=== PATIENT | female | born 2000 | race African-American/Black ===

== ENCOUNTER 2022-04-29 21:14 | Emergency (ER) | payer OTHER ==
[~2022-04-29] VITALS: Ht 162.6 cm; Wt 56.8 kg
[2022-04-29 23:30] VITALS: BP 119/66
== END 2022-04-29 23:55 | disposition home or self-care (01) ==
LOC: EMS 21:18
DX: S93.401A Sprain of unspecified ligament of right ankle, initial encounter (principal); G43.909 Migraine, unspecified, not intractable, without status migrainosus; X58.XXXA Exposure to other specified factors, initial encounter; Y93.01 Activity, walking, marching and hiking; Y92.89 Other specified places as the place of occurrence of the external cause; Y99.8 Other external cause status
CPT/HCPCS: 99283

== ENCOUNTER 2024-05-13 09:00 | Emergency (ER) | payer OTHER ==
[~2024-05-13] VITALS: Ht 162.6 cm; Wt 59.1 kg
[2024-05-13 09:03] VITALS: BP 122/63; PULSE 85; RESP 18; TEMP 98.4
[2024-05-13] MEDS: ACETAMINOPHEN 325 MG TABLET PO ONE (09:48)
[2024-05-13] MEDS ORDERED: ACET-2247 PO (10:04)
== END 2024-05-13 10:28 | disposition home or self-care (01) ==
LOC: EMS 09:07
DX: S60.221A Contusion of right hand, initial encounter (principal); W23.1XXA Caught, crushed, jammed, or pinched between stationary objects, initial encounter; Y93.89 Activity, other specified; Y92.89 Other specified places as the place of occurrence of the external cause; Y99.8 Other external cause status
CPT/HCPCS: 99283

== ENCOUNTER 2024-05-19 11:10 | Emergency (ER) | payer OTHER ==
[~2024-05-19] VITALS: Ht 162.6 cm; Wt 56.8 kg
[~2024-05-19 11:10] MED LIST: ACET-2247 PO
[2024-05-19 11:18] VITALS: TEMP 98.5
[2024-05-19] MEDS ORDERED: IBUP-1492 PO (13:48)
[2024-05-19 14:15] VITALS: BP 101/60; PULSE 67; RESP 16
== END 2024-05-19 14:37 | disposition home or self-care (01) ==
LOC: EMS 11:26
DX: S60.221A Contusion of right hand, initial encounter (principal); W23.1XXA Caught, crushed, jammed, or pinched between stationary objects, initial encounter; Y93.89 Activity, other specified; Y92.89 Other specified places as the place of occurrence of the external cause; Y99.8 Other external cause status
CPT/HCPCS: 99283